=== PATIENT | male | born 1970 | race Caucasian/White ===

== ENCOUNTER 2017-10-15 07:49 | Day surgery (SDC) | payer OTHER ==
[2017-10-15] VITALS (14 sets, daily range): BP systolic 130–158; BP diastolic 68–94
[~2017-10-15] VITALS: Ht 175.3 cm; Wt 90.7 kg
--- NOTE | 2017-10-15 06:56 | Pre-Procedure Note/Attestation ---
Pre-Procedure Note/Attestation Complete Prior to Procedure Planned Procedure: right Procedure Narrative: rt tibial hardware removal Indications for Procedure Pre-Operative Diagnosis: rt tibial painful hardware Attestation I attest that I discussed the nature of the procedure; its benefits; risks and complications; and alternatives (and the risks and benefits of such alternatives ), prior to the procedure, with the patient (or the patient's legal claim representative). I attest that, if there was a reasonable possibility of needing a blood transfusion, the patient (or the patient's legal claim representative) was given the [facility] standardized written summary, pursuant to the [place] Blood Safety Act ([place] Health and Safety Code # 1645, as amended). I attest that I re-evaluated the patient just prior to the surgery and that there has been no change in the patient's H&P, except as documented below:NONE SANDY HARDY Oct 15, 2017 06:56
[~2017-10-15 07:49] MED LIST: TESTONE CI200 MG/1 M IM; ceFAZolin 1gm in D5W 55ml IVP ONE; oxyCONTIN 20mg tab ORAL ONE
[2017-10-15] MEDS ORDERED: NALTREXONE HCL50 MG PO (08:36)
[2017-10-15] MEDS ORDERED: FINASTERIDE1 MG PO (08:36)
[2017-10-15] MEDS ORDERED: COREG12.5 MG ORAL (08:36)
[2017-10-15] MEDS ORDERED: Bupivacaine 0.5% Inj 30 ml vial INJ ONE (09:27)
[2017-10-15] MEDS ORDERED: Bacitracin Irrig 1000ml IRRIG ONE (09:54)
[2017-10-15] MEDS ORDERED: Propofol 200mg/20ml IV ONE (09:54)
[2017-10-15] MEDS ORDERED: Sterile Water Irrig 1000ml IRRIG ONE (10:00)
[2017-10-15] MEDS ORDERED: Midazolam 2mg/2ml Inj ONE (10:00)
[2017-10-15] MEDS ORDERED: fentaNYL 100 mcg/2 mL IV ONE (10:00)
[2017-10-15] MEDS ORDERED: NS Irrig 1000ml ONE (10:00)
[2017-10-15] MEDS ORDERED: LR 1000ml ONE (10:00)
[2017-10-15] MEDS ORDERED: Ketorolac 30mg Inj ONE (10:00)
[2017-10-15] MEDS ORDERED: LR 1000ml 1,000 ML IVLG SCH (10:46)
--- NOTE | 2017-10-15 10:46 | Anethesia Preoperative Eval ---
Anesthesia Pre-op PMH/ROS General Date of Evaluation: Oct 15, 2017 Time of Evaluation: 09:50 Anesthesiologist: Roma ASA Score: ASA 2 Mallampati Score Class I : Soft palate, uvula, fauces, pillars visible Class II: Soft palate, uvula, fauces visible Class III: Soft palate, base of uvula visible Class IV: Only hard plate visible Mallampati Classification: Class II Surgeon: Aga Diagnosis: Retained hardwear R tibia Surgical Procedure: R tibia retained hardwear remowal Anesthesia History: none Family History: no anesthesia problems Allergies: Coded Allergies: SACUBITRIL (Verified Allergy, Severe, similar to heart attack , 10/15/17) VALSARTAN (Verified Allergy, Severe, similar to heart attack , 10/15/17) NAPROXEN (Verified Allergy, Intermediate, hives, 10/15/17) Past Medical History Cardiovascular: Reports: HTN - borderline, Denies: CAD, [place], valve dz, arrhythmia, other Pulmonary: Denies: asthma, COPD, RACHEL, other Gastrointestinal/Genitourinary: Reports: GERD - mild, Denies: CRI, ESRD, other Neurologic/Psychiatric: Denies: dementia, CVA, depression/anxiety, TIA, other Endocrine: Denies: DM, hypothyroidism, steroids, other HEENT: Denies: cataract (L), cataract (R), glaucoma, [place] (L), [place] (R), other Hematology/Immune: Denies: anemia, DVT, bleeding disorder, other Musculoskeletal/Integumentary: Denies: OA, RA, DJD, DDD, edema, other PMH Narrative: as above PSxH Narrative: ORIF R tibial plato Fx Anesthesia Pre-op Phys. Exam Physician Exam Last Vital Signs Date Time Temp Pulse Resp B/P (MAP) Pulse Ox O2 Delivery O2 Flow Rate FiO2 10/15/17 08:30 98.4 52 18 130/86 96 Room Air Constitutional: NAD Neurologic: CN 2-12 intact Cardiovascular: RRR Respiratory: CTA Gastrointestinal: S/NT/ND Airway Exam Mallampati Score: Class II MO: full Neck: flexible ROM: full Teeth: intact Dentures: no upper, no lower Anesthesia Pre-op A/P Labs see chart Risk Assessment & Plan Assessment: ASA 2 Plan: GA with LMA Status Change Before Surgery: No Pre-Antibiotics Drug: Ancef 2gr. Given Within 1 Hr of Incision: Yes Time Given: 10:21 MARJ ZUNIGA M.D. Oct 15, 2017 10:46
[2017-10-15] MEDS ORDERED: Meperidine 50mg/ml Inj(FOR RIGORS ONLY) IV PRN (11:00)
[2017-10-15] MEDS ORDERED: DiphenhydrAMINE 50mg/ml Inj IVP PRN (11:00)
[2017-10-15] MEDS ORDERED: Acetaminophen (Non formulary) 100 ML IV ONE (11:00)
--- NOTE | 2017-10-15 11:55 | Brief Operative Note ---
Immediate Post Operative Note Operative Note Chief Complaint: rt tibial painful hardware Pre-op Diagnosis: rt tibial painful hardware Procedure: rt tibial hardware removal Post-op Diagnosis: same as pre-op Findings: consistent w/pre-op dx studies Surgeon: md taurus Cmm Inspector: iam dillon Anesthesiologist: md adelaida Anesthesia: general Specimen: yes Complications: none Condition: stable Fluids: ns Estimated Blood Loss: minimal Drains: none Implant(s) used?: No YANIRA DILLON Oct 15, 2017 11:55
[2017-10-15] MEDS: Hydromorphone 0.5mg/0.5ml inj IVP PRN ×2 (12:22→12:49)
--- NOTE | 2017-10-15 13:03 | Immediate Post-Op Evaluation ---
Immediate Post-Op Evalulation Immediate Post-Op Evalulation Procedure: R tibial hardwear removal Date of Evaluation: Oct 15, 2017 Time of Evaluation: 12:10 IV Fluids: 1000 Blood Products: none Estimated Blood Loss: min Urinary Output: none Blood Pressure Systolic: 148 Blood Pressure Diastolic: 78 Pulse Rate: 84 Respiratory Rate: 22 O2 Sat by Pulse Oximetry: 98 Temperature (Fahrenheit): 97.8 Pain Score (1-10): 2 Nausea: No Vomiting: No Complications none Patient Status: reacts, patent, none Hydration Status: adequate MARJ ZUNIGA M.D. Oct 15, 2017 13:03
--- NOTE | 2017-10-15 14:35 | 48 Hour Post Anesthesia Eval ---
Post Anesthesia Evaluation Procedure: R tibial hardwear removal Date of Evaluation: Oct 15, 2017 Time of Evaluation: 14:34 Blood Pressure Systolic: 136 0: 68 Pulse Rate: 72 Respiratory Rate: 20 Temperature (Fahrenheit): 97.6 O2 Sat by Pulse Oximetry: 98 Airway: patent Nausea: No Vomiting: No Pain Intensity: 2 Hydration Status: adequate Cardiopulmonary Status: stable Mental Status/LOC: patient returned to baseline Follow-up Care/Observations: n/a Post-Anesthesia Complications: none Follow-up care needed: ready to discharge MARJ ZUNIGA M.D. Oct 15, 2017 14:35
[2017-10-15] MEDS ORDERED: Norco 5mg/325mg tab ORAL PRN (17:01)
[2017-10-15] MEDS ORDERED: Tylenol #3 tab (300mg/30mg) ORAL PRN (17:01)
[2017-10-15] MEDS ORDERED: HYDROmorphone 1mg/ml Carpuject SUBQ PRN (17:01)
[2017-10-15] MEDS ORDERED: D5 1/2NS 1,000 ML IV SCH (17:01)
--- NOTE | 2017-10-15 22:17 | Operative Note - Dictated ---
DATE OF OPERATION: 10/15/2017 PREOPERATIVE DIAGNOSIS: Right tibial retained painful hardware. POSTOPERATIVE DIAGNOSIS: Right tibial retained painful hardware. PROCEDURE: Removal of multiple screws and plates from the right tibia. SURGEON: Gonzalez Yung M.D. WEIGHMASTER: Veronica Lynch PA-C. ANESTHESIOLOGIST: oRbi Brandon M.D. ANESTHESIA: General LMA anesthesia. EBL: Less than 20 mL. TOURNIQUET TIME: 45 minutes. COMPLICATIONS: None. BRIEF HISTORY: The patient is a pleasant 47-year-old gentleman, who sustained a right tibial plateau fracture. The hardware was bothering him. After full discussion of the risks and benefits of the surgery and complications associated with it including infection, bleeding, neurovascular complication, possibility of continued pain, possible need for further surgery down the line, and other complications that may arise, he opted for surgical treatment as described above. OPERATIVE PROCEDURE: The patient was brought to the operating table and was placed supine. All pressure points were well padded. General LMA anesthesia was induced. Right leg was prepped and draped in usual sterile fashion. The right leg was exsanguinated and tourniquet was inflated to 275 mmHg. A standard incision was made over the previous incision and the incision was taken down. Subperiosteal dissection was performed and the hardware was identified. The hardware screws were removed. A stab wound incision will had to be made on the proximal posterior screw so that this can come out. A second stab wound incision will had to be done distally. At this point, all the screws were removed without any complication. The plate was removed. At this point, two other screws were identified anteriorly, which were removed without any complications. Wounds were thoroughly irrigated using copious amount of fluid. The extensor muscles were closed using #1 Vicryl suture. Subcutaneous tissue was closed using 2-0 Vicryl suture. Skin was closed using 3-0 Monocryl suture. Sterile dressing was applied and the patient was taken recovery room in stable condition. All hardware was removed. The image intensifier was brought in and this was ensured that this was the case. Gonzalez Yung M.D. DR: TIM JOB#: [id number] CC:
--- NOTE | 2017-10-16 11:12 | Diagnostic Imaging Report ---
Indication: Intraoperative Technique: Intraoperative images Comparison: none Findings: Intraoperative images document removal of lateral side plate and screws from the tibia Impression: Intraoperative imaging, as described
== END 2017-10-15 14:20 | disposition home or self-care (01) ==
LOC: SUR 07:49
DX: T85.848A Pain due to other internal prosthetic devices, implants and grafts, initial encounter (principal); X58.XXXA Exposure to other specified factors, initial encounter; Y93.9 Activity, unspecified; Y92.9 Unspecified place or not applicable; I10 Essential (primary) hypertension; K21.9 Gastro-esophageal reflux disease without esophagitis; Z88.8 Allergy status to other drugs, medicaments and biological substances
CPT/HCPCS: 20680; 73590; 76001; J0690; J1170; J1885; J2175; J2250; J2405; J2704; J3010; J3490; J7120; 94003; 94150